=== PATIENT | male | born 1950 | race Caucasian/White ===

== ENCOUNTER 2020-08-02 05:33 | Day surgery (SDC) | payer BC ==
[2020-07-28 12:57] LABS: BASOPHILS % (AUTO) 0.5 % (0-1); EOSINOPHILS # (AUTO) 0.1 X10'3 (0-0.9); EOSINOPHILS % (AUTO) 0.6 % (0-6); LYMPHOCYTES # (AUTO) 1.1 X10'3 (1.1-4.8); LYMPHOCYTES % (AUTO) 13.2 % (21-51); MEAN CORPUSCULAR HEMOGLOBIN 28.9 PG (27.0-31.0); MEAN CORPUSCULAR HGB CONC 33.3 g/dL (33.0-36.5); MEAN PLATELET VOLUME 8.6 FL (7.4-10.4); MONOCYTES # (AUTO) 0.5 X10'3 (0-0.9); MONOCYTES % (AUTO) 5.9 % (2-12); NEUTROPHILS # (AUTO) 6.8 X10'3 (1.8-7.7); NEUTROPHILS % (AUTO) 79.8 % (42-75); PRE OP HEMATOCRIT 46.8 % (42.0-52.0); PRE OP HEMOGLOBIN 15.6 g/dL (14.0-17.9); PRE OP PLATELET COUNT 230 X10'3 (140-440); RED BLOOD COUNT 5.38 X10'6 (4.70-6.10); RED CELL DISTRIBUTION WIDTH 14.8 % (11.5-14.5)
[2020-07-28 13:03] LABS: ALBUMIN 4.2 G/DL (3.4-5.0); ALBUMIN/GLOBULIN RATIO 1.2 (1.1-1.5); ALKALINE PHOSPHATASE 131 IU/L (46-116); BLOOD UREA NITROGEN 15 MG/DL (7-18); BUN/CREATININE RATIO 18.3 (5.4-32.0); CALCIUM 9.6 MG/DL (8.5-10.1); CHLORIDE 101 MMOL/L (99-107); CREATININE 0.82 MG/DL (0.60-1.10); PRE OP ALT 27 U/L (30-65); PRE OP ANION GAP 7 (8-16); PRE OP AST 15 U/L (10-37); PRE OP BILIRUB, TOTAL 0.8 MG/DL (0.0-1.0); PRE OP GLUCOSE 111 MG/DL (70-104); PRE OP SODIUM 138 MMOL/L (135-145); TOTAL PROTEIN 7.8 G/DL (6.4-8.2); eGFR > 90 ML/MIN
[2020-08-02] VITALS (15 sets, daily range): BP systolic 130–159; BP diastolic 68–80
[~2020-08-02] VITALS: Ht 175.3 cm; Wt 89.4 kg
[~2020-08-02 05:33] MED LIST: AMLO10TA13 PO; clindamycin-Cleocin 900mg/D5W 50 ML IV ONE; famotidine 20mg tablet PO ONE; ringers solution, lacted 1,000 ML IV SCH
[2020-08-02] MEDS ORDERED: CLIN-97 PO (06:12)
[2020-08-02] MEDS ORDERED: LIDOcaine 1% (10mg/ml) 2ml vial ONE (06:24)
[2020-08-02] MEDS ORDERED: LIDOcaine 1% 30ml preserv. free vial ONE (06:41)
[2020-08-02] MEDS ORDERED: BUPIVAcaine/PF 2.5 mg/ml (0.25%) 30ml vial ONE (06:42)
[2020-08-02] MEDS ORDERED: midazolam 2 mg/2 ml injection ONE (07:42)
[2020-08-02] MEDS ORDERED: fentaNYL /PF 50mcg/ml 5ml ampule ONE (07:56)
[2020-08-02] MEDS ORDERED: LIDOcaine 2% 5ml jelly ONE (07:56)
[2020-08-02] MEDS ORDERED: rocuronium 10mg/ml inj IV ONE (07:57)
[2020-08-02] MEDS ORDERED: propofol inj 20 ML IV ONE (07:57)
[2020-08-02] MEDS ORDERED: LIDOcaine 2% (20mg/ml) 5ml vial ONE (07:57)
[2020-08-02] MEDS ORDERED: BUPIVACAINE liposomal/PF 13.3 MG/ML vial IM ONE (08:22)
[2020-08-02] MEDS ORDERED: BUPIVAcaine/PF 2.5mg/ml (0.25%) 10ml vial ONE (08:22)
[2020-08-02] MEDS ORDERED: ondansetron/PF 4mg/2ml inj ONE (08:44)
[2020-08-02] MEDS ORDERED: dexamethasone sod phosphate 4mg/ml inj. ONE (08:44)
[2020-08-02] MEDS ORDERED: neostigmine methylsulfate 1 MG/ML 10ml vial ONE (08:44)
[2020-08-02] MEDS ORDERED: glycopyrrolate 0.2mg/ml inj ONE (08:44)
--- NOTE | 2020-08-02 08:59 | NUR ---
RECEIVED FROM OR VIA [facility] ACCOMPANIED BY ANESTHESIOLOGIST DR BALLARD, REPORT GIVEN.PT DROWSY BUT AROUSES EASILY AND DENIES PAIN AT THIS TIME. 20 GAUGE PIV R HAND PATENT AND RUNNING LR AT 100 ML/HR. LG BANDAID X3 TO ABD CDI, ABD SOFT. PPULSES PRESENT, CAP REFILL BRISK, FLORES, SKIN PINK AND WARM, VSS, RESTING COMFORTABLY
[2020-08-02] MEDS ORDERED: ringers solution, lacted 1,000 ML IV SCH (09:02)
[2020-08-02] MEDS ORDERED: ondansetron/PF 4mg/2ml inj IV PRN (09:05)
[2020-08-02] MEDS ORDERED: labetalol 20mg/4ml (5mg/ml) syringe IV PRN (09:05)
[2020-08-02] MEDS ORDERED: morphine 2 MG/ML inj. syringe IV PRN (09:05)
[2020-08-02] MEDS ORDERED: acetaminophen 1,000mg/100ml IV 100 ML IV PRN (09:05)
[2020-08-02] MEDS ORDERED: hydrALAZINE 20mg/ml inj. IV PRN (09:05)
[2020-08-02] MEDS ORDERED: proCHLORperazine 10 MG/2 ml inj IV PRN (09:05)
[2020-08-02] MEDS ORDERED: morphine 4 MG/ML inj SYRINge IV PRN (09:05)
[2020-08-02] MEDS ORDERED: oxyCODONE/APAP 5-325mg tablet PO PRN (09:05)
[2020-08-02] MEDS ORDERED: meperidine/PF 25mg/ml syringe IV PRN ×3 (09:05)
--- NOTE | 2020-08-02 11:05 | NUR ---
PT AWAKE AND ALERT AND STATES PAIN LEVEL OF 2 AT THIS TIME. 20 GAUGE PIV R HAND DC/D CATH TIP INTACT. LG BANDAID X3 TO ABD CDI, ABD SOFT. PPULSES PRESENT, CAP REFILL BRISK, FLORES, SKIN PINK AND WARM, VSS. TOLERATING FLUIDS, ABLE TO DRESS SELF, AMBULATE AND VOID. DISCHARGE INSTRUCTIONS GIVEN AND PT VERBALIZED UNDERSTANDING. TRANSPORTED VIA WHEELCHAIR TO IN PRIVATE VEHICLE TO HOME.
== END 2020-08-02 11:09 | disposition home or self-care (01) ==
LOC: PAS 05:33
PROVIDERS: ATTEND Surgery
DX: K42.9 Umbilical hernia without obstruction or gangrene (principal); I10 Essential (primary) hypertension; J45.909 Unspecified asthma, uncomplicated; E11.9 Type 2 diabetes mellitus without complications; M19.90 Unspecified osteoarthritis, unspecified site; Z79.899 Other long term (current) drug therapy; Z20.828 Contact with and (suspected) exposure to other viral communicable diseases; Z98.890 Other specified postprocedural states; Z88.0 Allergy status to penicillin; Z88.1 Allergy status to other antibiotic agents; Z88.2 Allergy status to sulfonamides; Z90.79 Acquired absence of other genital organ(s); Z88.8 Allergy status to other drugs, medicaments and biological substances; Z85.46 Personal history of malignant neoplasm of prostate; Z72.89 Other problems related to lifestyle; Z82.49 Family history of ischemic heart disease and other diseases of the circulatory system; Z83.3 Family history of diabetes mellitus
CPT/HCPCS: 36415; 49652; 64488; 80053; 82948; 85025; 87635; 93005; C1781; C9290; J1100; J2001; J2175; J2250; J2405; J2704; J2710; J3010; J3490; J7120; S2900; A4215; A4618